=== PATIENT | male | born 1985 | race Caucasian/White ===

== ENCOUNTER 2018-10-06 19:12 | Emergency (ER) | payer BC, SELFPAY ==
[2018-10-06 19:16] VITALS: BP 141/100; PULSE 104; RESP 16; TEMP 37.1; O2SAT 99
--- NOTE | 2018-10-06 19:41 | NUR.NOTE ---
patient fsbs 226mg/dL Nursing Note:
--- NOTE | 2018-10-06 20:07 | ED.GENADUL_ITS ---
Discharge Plan Disposition Patient Disposition: HOME Discharge Details Chief Complaint: GenMedical Clinical Impression: Balanitis Primary Care Provider: Cristy Ro V ED Provider: Brad Hall Home Meds and New Rx's Prescriptions: New fluconazole 150 mg tablet 150 mg PO DAILY Qty: 2 RF: 0 No Action enalapril maleate 5 MG tablet 5 mg PO DAILY RF: 0 topiramate 25 MG tablet 50 mg PO BID RF: 0 levothyroxine [Synthroid] 75 MCG tablet 75 mg PO DAILY RF: 0 citalopram 20 MG tablet 40 mg PO DAILY RF: 0 simvastatin 5 MG tablet 40 mg PO DAILY RF: 0 omeprazole 20 MG capsule,delayed release(DR/EC) 40 mg PO HS RF: 0 aspirin [Aspirin Low-Strength] 81 MG tablet,chewable 81 mg PO DAILY RF: 0 liraglutide [Victoza 2-Marcell] 0.6 MG/0.1 ML pen injector 1.8 mg SQ DAILY RF: 0 insulin regular hum U-500 conc [Humulin R U-500 (Conc) Insulin] 500 UNIT/ML solution 21 unit SQ HS RF: 0 potassium chloride 20 MEQ tablet,ER particles/crystals 20 meq PO DAILY RF: 0 carbamazepine 200 MG tablet extended release 12 hr 200 mg PO DAILY RF: 0 carbamazepine 200 MG tablet extended release 12 hr 600 mg PO HS RF: 0 albuterol sulfate [ProAir HFA] 200 PUFF HFA aerosol inhaler 2 puff Inhalation Q4H PRN PRNRF: 0 insulin regular hum U-500 conc [Humulin R U-500 (Conc) Insulin] 500 UNIT/ML solution 11 unit SQ DAILY RF: 0 hydrocodone-acetaminophen 1 EACH tablet 1 - 2 ea PO Q4H PRN (Reason: Pain) Qty: 30 RF: 0 Medical Decision Making 33yo m with insulin-dependent diabetes here with balanitis. Suspect fungal etiology. Consider less likely bacterial or herpes. Bacterial and viral cultures taken. Blood sugar checked today and was 220. I called and spoke with Dr. Rodriguez and discussed the patient's presentation today. He recommended starting fluconazole times 3 days. He noted that if symptoms do not improve, he would like to see the patient in clinic this week. ECG was performed given potential interaction with other medications and risk of QT prolongation. ECG was reviewed and interpreted by me: Normal sinus rhythm, QTC 433. Patient was given a dose of fluconazole here. He will follow-up with his primary care physician Monday. He understands that if symptoms do not improve or worsen over the next couple days that he should follow-up with urology this week. Patient instructed to monitor blood sugar closely. HPI General Mode of arrival: ambulatory . Date/Time Provider Initiated Documentation: 10/06/18 19:26 . Limitations to Documentation: no limitations . Information obtained by: patient . HPI Narrative: 33-year-old male with history of insulin-dependent diabetes here with chief complaint of inflammation of his penis. Patient notes that since around he has had dry cracked skin around the meatus of his penis. He has been seen by his primary care physician for this. He did try nystatin for 1 day. Symptoms have worsened over the past few days and are now quite tender. Symptoms severe. Worse on palpation. He has no dysuria but does have pain after urinating as he notes that urine contacts irritated skin. He has no associated fever. No abdominal pain He is sexually active with his . Patient notes that he has been taking his insulin as prescribed but is not checking blood sugar frequently. Related Data Home Medications Medication Instructions Recorded Confirmed aspirin [Aspirin Low-Strength] 81 mg PO DAILY tab-cap 12/23/15 01/28/16 citalopram 40 mg PO DAILY 12/23/15 01/28/16 enalapril maleate 5 mg PO DAILY 12/23/15 01/28/16 levothyroxine [Synthroid] 75 mg PO DAILY 12/23/15 01/28/16 liraglutide [Victoza 2-Marcell] 1.8 mg SQ DAILY 12/23/15 01/28/16 omeprazole 40 mg PO HS 12/23/15 01/28/16 simvastatin 40 mg PO DAILY tab-cap 12/23/15 01/28/16 topiramate 50 mg PO BID 12/23/15 01/28/16 albuterol sulfate [Proair Hfa] 2 puff INHALATION Q4H PRN PRN 01/25/16 01/25/16 carbamazepine 200 mg PO DAILY 01/25/16 01/28/16 carbamazepine 600 mg PO HS 01/25/16 01/28/16 insulin regular hum U-500 conc 11 unit SQ DAILY 01/25/16 01/28/16 [Humulin R] insulin regular hum U-500 conc 21 unit SQ HS 01/25/16 01/28/16 [Humulin R] potassium chloride 20 meq PO DAILY 01/25/16 01/28/16 hydrocodone-acetaminophen 1 - 2 ea PO Q4H PRN #30 tablet 01/28/16 fluconazole 150 mg PO DAILY #2 tab 10/06/18 Previous Rx's Medication Instructions Recorded hydrocodone-acetaminophen 1 - 2 ea PO Q4H PRN #30 tablet 01/28/16 fluconazole 150 mg PO DAILY #2 tab 10/06/18 Allergies Allergy/AdvReac Type Severity Reaction Status Date / Time exenatide [From [place]] AdvReac Intermediate made Unverified 10/06/18 19:20 sugar go high Influenza Virus Vaccines AdvReac Intermediate got sick Unverified 10/06/18 19:20 General Stated Complaint: GenMedical AFSANEH: 3 Review of Systems Constitutional Denies fever(s) Genitourinary Reports as per HPI Integumentary/Breasts Reports as per HPI PFS Medical History Diabetes GERD (gastroesophageal reflux disease) HTN (hypertension) Hyperlipidemia Hypothyroidism Seizure Surgical History Circumcision Social History Smoking/Tobacco Use Status: Never Exam Const General: cooperative and no acute distress HENMT Mouth: moist mucous membranes Eyes Conjunctivae: normal conjunctivae Sclera: normal sclerae Resp Auscultation: clear to auscultation bilaterally, no rales, no rhonchi and no wheezes Cardio Jugular venous pressure: no JVD Rate: regular rate and not tachycardic Rhythm: regular rhythm GI Palpation: soft, not firm, no guarding, no masses, not rigid and nontender Penis: other (Macerated skin with moist inflammation of foreskin and glans pain) Meatus: no meatla discharge Scrotum: scrotum normal and no scrotal swelling Testes: normal Skin General skin exam: no rashes or lesions noted Neuro General: alert, awake, oriented x3 and tone normal Extrem General: no edema Psych Appearance: grossly normal Mental Status: mental status grossly normal Speech and Movement: speech and movement normal Course Vital Signs Temperature 37.1 C 10/06/18 19:16 Pulse 104 H 10/06/18 19:16 Respiratory Rate 16 10/06/18 19:16 Blood Pressure 141/100 H 10/06/18 19:16 Pulse Oximetry 99 10/06/18 19:16 Temperature 37.1 C 10/06/18 19:16 Temperature Source Skin 10/06/18 19:16 Pulse 104 H 10/06/18 19:16 Respiratory Rate 16 10/06/18 19:16 Respiratory Effort 10/06/18 19:41 Blood Pressure 141/100 H 10/06/18 19:16 Pulse Oximetry 99 10/06/18 19:16 Oxygen Delivery Method Room Air 10/06/18 19:16 Oxygen Flow Rate 0 10/06/18 19:16 Pain Level 8 10/06/18 19:16 Comment 10/06/18 19:16 Lab/Test Results Lab/Test Results: 10/06/18 19:59 Penile Wound Culture - Pending 10/06/18 19:59 Penile Gram Stain - Pending
[2018-10-06] MEDS: Fluconazole 150 MG TAB PO (20:37)
[2018-10-06 21:16] VITALS: BP 145/95; PULSE 90
[2018-10-09 14:52] LABS: Chlamydia Result Negative; GC Result Negative
== END 2018-10-06 20:19 | disposition home or self-care (01) ==
PROVIDERS: Emergency Provider Student in an Organized Health Care Education/Training Program; PCP Family Medicine
DX: N48.1 Balanitis (principal); B95.1 Streptococcus, group B, as the cause of diseases classified elsewhere; B95.61 Methicillin susceptible Staphylococcus aureus infection as the cause of diseases classified elsewhere; E11.65 Type 2 diabetes mellitus with hyperglycemia; Z79.4 Long term (current) use of insulin; I10 Essential (primary) hypertension
CPT/HCPCS: 87077; 87491; 87529; 87591; 93005; 99283; 87070; 87186; 87205; 93010

== ENCOUNTER 2018-10-25 18:25 | Outpatient (REF) | payer BC, SELFPAY ==
[2018-10-25 22:10] LABS: ALT 30 U/L (12-78); AST 15 U/L (15-37); Albumin 3.7 g/dL (3.4-5.0); Alkaline Phosphatase 132 U/L (46-116); Anion Gap 8.4 mmol/L (3-11); BUN 21 mg/dL (7-18); Bilirubin, Total 0.2 mg/dL (0.2-1.0); CO2 28.6 mmol/L (21.0-32.0); CREATININE 0.88 mg/dL (0.70-1.30); Calcium 9.1 mg/dL (8.5-10.1); Chloride 102 mmol/L (98-107); Cholesterol 174 mg/dL (50-200); Glucose 191 mg/dL (70-100); HDL Cholesterol 57 mg/dL (40-60); LDL CHOLESTEROL 83 mg/dL (<100); Potassium 4.4 mmol/L (3.5-5.1); Sodium 139 mmol/L (136-145); TSH (W/Ref FT4) 1.84 uIU/mL (0.358-3.74); Total Protein 7.3 g/dL (6.4-8.2); Triglyceride 257 mg/dL (30-150)
== END 2018-10-25 18:45 ==
LOC: NCHCN 18:25
PROVIDERS: PCP Family Medicine; Visit Provider Family Medicine
DX: E11.9 Type 2 diabetes mellitus without complications (principal); I10 Essential (primary) hypertension; E03.9 Hypothyroidism, unspecified; E78.5 Hyperlipidemia, unspecified
CPT/HCPCS: 80053; 80061; 83721; 84443

== ENCOUNTER 2018-11-05 01:13 | Outpatient (CLI) | payer BC, SELFPAY ==
--- NOTE | 2018-11-07 08:07 | DIABASSESS_ITS ---
DESCRIPTION/ASSESSMENT: Zack Gil presents with his for diabetes self management solely to learn about continuous glucose monitor options. He [place] [facility] [place] Food - Zack is minimizing his carbohydrate intake with the help of his . They are informed about carbohydrate sources. Medication - U500 11u AM 21u bedtime using syringe and needle; Januvia. He is intolerant to Metformin, GLP1 agonist, and SGLT2 inhibitor secondary to infection. Monitoring - states he does not have time to monitor blood sugars in a meaningful way; occasionally he monitors 160-200s fasting. He reports at least 1 nocturnal hypoglycemia episode and is aware that he feels he needs to eat before bed to prevent hypoglycemia, despite lack of hunger. INTERVENTION: DSME is provided in the following AADE 7 areas based on patients interest and assessment of needs: Monitoring - Explained usage, benefits of CGM including Freestyle Jamal and Dexcom G6 and he was able to see the Dexcom G6. Given that he does not know what is happening throughout the day and night, he expresses preference for Dexcom G6 and completes the paperwork. Explained process. ACTION PLAN: We will send in application to Dexcom G6 and await the next step. Individual DSME/T __0__ units billed TIME IN: 105 OUT: 1115 No DM group education series being offered at this time.
== END 2018-11-05 01:33 ==
PROVIDERS: PCP Family Medicine; Visit Provider Dietitian, Registered
DX: E11.9 Type 2 diabetes mellitus without complications (principal); Z79.4 Long term (current) use of insulin; Z71.3 Dietary counseling and surveillance

== ENCOUNTER 2019-04-25 15:59 | Outpatient (CLI) | payer MEDICAID, SELFPAY ==
--- NOTE | 2019-04-25 17:20 | NS.NUTBLAN_ITS ---
DESCRIPTION: Zack Gil presents for nutrition consult with diabetes for bariatric surgery. He has had difficulty managing his blood sugars despite U500 insulin and has been unable to lose weight. He has just started Trulicity 2 months ago He has been making an effort to cut carbohydrates. 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 He has cut his diet soda intake and drinks 1 gallon water per day. He snacks on pickles, olives, pepperoni at work. He gets his physical activity at work walking and lifting. WEIGHT today: 372.6 HEIGHT: 68 BMI: 56.8 INTERVENTION: Encouraged him to continue with his current restricted eating while encouraging substituting crunchy vegetables for chips. Discussed physical activity. Discussed documenting food for tracking. PLAN: Zack will continue restricting carbohydrate; begin documenting his food and blood sugars for 1 week. He will attempt to decrease his carbonated beverages Will follow up in 1 month to track weight, food intake and physical activity
== END 2019-04-25 16:19 ==
PROVIDERS: PCP Family Medicine; Visit Provider Dietitian, Registered
DX: E66.2 Morbid (severe) obesity with alveolar hypoventilation (principal); Z68.43 Body mass index [BMI] 50.0-59.9, adult; E11.9 Type 2 diabetes mellitus without complications; Z79.4 Long term (current) use of insulin; Z71.3 Dietary counseling and surveillance
CPT/HCPCS: 97802